=== PATIENT | male | born 1985 | race African-American/Black ===

== ENCOUNTER 2020-02-17 10:55 | Outpatient (CLI) | payer BC ==
[2020-02-17 11:19] LABS: Basophils % (Auto) 0.8 % (0.0-1.8); Eosinophils # (Auto) 0.1 K/mm3 (0.0-0.4); Eosinophils % (Auto) 2.8 % (0.0-4.3); Hematocrit 47.4 % (35.5-45.6); Lymphocytes # (Auto) 2.1 K/mm3 (1.2-5.4); Lymphocytes % (Auto) 39.1 % (13.4-35.0); Mean Corpuscular HGB Conc 34 % (32-34); Mean Corpuscular Volume 82 fl (84-94); Monocytes # (Auto) 0.3 K/mm3 (0.0-0.8); Monocytes % (Auto) 5.7 % (0.0-7.3); Platelet Count 170 K/mm3 (140-440); Red Blood Count 5.76 M/mm3 (3.65-5.03); Red Cell Distribution Width 13.2 % (13.2-15.2)
[2020-02-17 11:42] LABS: Alanine Aminotransferase 121 units/L (7-56); Albumin 4.3 g/dL (3.9-5); Blood Urea Nitrogen 8 mg/dL (9-20); Calcium 9.4 mg/dL (8.4-10.2); Chol/HDL Ratio 6.26 %; HDL Cholesterol 34 mg/dL (40-59); Hemolysis Index 6; LDL Cholesterol,Direct TNR mg/dL (50-130)
[2020-02-17 11:45] LABS: BUN/Creatinine Ratio 11
== END 2020-02-17 10:56 | disposition home or self-care (01) ==
LOC: LAB 10:55
DX: D51.9 Vitamin B12 deficiency anemia, unspecified (principal); E61.1 Iron deficiency; E78.2 Mixed hyperlipidemia; R03.0 Elevated blood-pressure reading, without diagnosis of hypertension; R73.01 Impaired fasting glucose
CPT/HCPCS: 36415; 80053; 80061; 85025